=== PATIENT | female | born 1975 | race African-American/Black ===

== ENCOUNTER 2019-03-22 06:10 | Day surgery (SDC) | payer OTHER ==
[2019-03-18 16:28] VITALS: BMI 27.4
[2019-03-22] MEDS ORDERED: SODIUM CHLORIDE 0.9% P/F 10 ML VIAL IJ ONE (07:15)
[2019-03-22] MEDS ORDERED: DEXAMETHASONE SOD PHOSPHATE 4 MG/1 ML VIAL ONE (07:15)
[2019-03-22] MEDS ORDERED: ceFAZolin SODIUM 1 GM VIAL ONE (07:15)
[2019-03-22] MEDS ORDERED: SUCCINYLCHOLINE CHLORIDE 200 MG/10 ML SYRINGE ONE (07:16)
[2019-03-22] MEDS ORDERED: PROPOFOL 20 ML ONE ×2 (07:16→08:13)
[2019-03-22] MEDS ORDERED: ROCURONIUM BROMIDE 50 MG/5 ML SYRINGE ONE (07:16)
[2019-03-22] MEDS ORDERED: fentaNYL CITRATE 250 MCG/5 ML VIAL ONE (07:16)
[2019-03-22] MEDS ORDERED: MIDAZOLAM HCL 2 MG/2 ML SINGLE DOSE VIAL ONE ×2 (07:17)
[2019-03-22] MEDS ORDERED: ACETAMINOPHEN INJECTION 100 ML IVPB ONE (07:33)
[2019-03-22] MEDS ORDERED: SCOPOLAMINE HYDROBROMIDE 1 PATCH PATCH.TD72 ONE (07:42)
[2019-03-22] MEDS ORDERED: oxyCODONE HCL 5 MG TABLET PO PRN ×2 (07:53)
[2019-03-22] MEDS ORDERED: ONDANSETRON 4 MG/2 ML VIAL IVPUSH PRN (07:53)
[2019-03-22] MEDS ORDERED: HYDROmorphone HCl 2 MG/ML VIAL IVPUSH PRN ×2 (07:54→07:55)
[2019-03-22] MEDS ORDERED: LIDOCAINE HCL 1%, 10 MG/ML (20ML VIAL) ONE (07:56)
[2019-03-22] MEDS ORDERED: EPINEPHrine/PF 1 MG/1 ML (1:1,000) AMPULE ONE (07:56)
[2019-03-22] MEDS ORDERED: LACTATED RINGERS SOLUTION 1,000 ML IV SCH (08:00)
[2019-03-22] MEDS ORDERED: ceFAZolin SODIUM 1 GM VIAL IVPB ONE (08:15)
--- NOTE | 2019-03-22 12:47 | OP ---
Operative Note - Note: Operative Date: 03/22/19 Pre-Operative Diagnosis: Symptomatic Macromastia Operation: Bilateral Reduction Mammaplasty Post-Operative Diagnosis: Same as Pre-op Surgeon: Jesus Alberto Reis Merchant Mariner: Louise Ricks Anesthesia: General Specimens Removed: Breast Tissue: 665g Left, 540g Right Estimated Blood Loss (mls): 100 Drains & Tubes with Location: Dmitry drain Each Side- Lateral IMF Operative Report Dictated: Yes
--- NOTE | 2019-03-22 12:59 | OP ---
Operative Note - Note: Operative Date: 03/22/19 Pre-Operative Diagnosis: Abdominal Adiposity Operation: Suction Assisted Lipectomy- Abdomen, Flanks, Lower Back Post-Operative Diagnosis: Same as Pre-op Surgeon: Jesus Alberto Reis Anesthesia: General Specimens Removed: 900cc Aspirate Operative Report Dictated: Yes
--- NOTE | 2019-03-22 13:07 | SURG ---
Surgery Farmworker Animal Note Farmworker Animal: Louise Ricks PA-C (Suzy) Date of Service: 03/22/19 Diagnosis: Symptomatic Macromastia Procedure: Operation: Bilateral Reduction Mammaplasty I was present for the entirety of the operative procedure. For further detail, please refer to operative report. Visit type - Case Type Case Type: Scheduled - Emergency Emergency Visit: No - New patient This patient is new to me today: Yes Date on this admission: 03/22/19 - Critical Care Critical Care patient: No
[2019-03-22] MEDS ORDERED: HYDROmorphone HCl 2 MG/ML VIAL ONE (13:27)
[2019-03-22] MEDS ORDERED: HYDROmorphone HCl 2 MG/ML VIAL IVPUSH ONE ×3 (13:30→14:25)
--- NOTE | 2019-03-22 13:30 | OP ---
DATE OF OPERATION: 03/22/2019 PREOPERATIVE DIAGNOSIS: Symptomatic macromastia. POSTOPERATIVE DIAGNOSIS: Symptomatic macromastia. PROCEDURE PERFORMED: Bilateral reduction mammoplasty. SURGEON: Jesus Alberto Guillaume MD LABEL MAKER: NATHANIEL Donahue ANESTHESIA: General. BRIEF HISTORY: The patient is a 43-year-old female with complaints of neck, back, and shoulder pain and discomfort with saddle deformity on both shoulders and frequent intertrigo. Her symptoms have not responded to nonsurgical therapies, and the patient is now for bilateral reduction mammoplasty. PROCEDURE: The patient was on the operating room table as general anesthesia was administered by the anesthesiologist. The area of the chest was prepped and draped in the usual sterile fashion. The patient was marked in the office 1 day prior to surgery, and these markings were now used as a guide for surgery. The right breast was addressed first, and a 45-mm cookie cutter was used to create a circular design within the nipple areolar complex on the right breast. This incision was made using a No. 15 scalpel blade as were all other skin incisions. An 8 cm inferior pedicle was designed, and this area was deepithelialized as was the area superior to the nipple areolar complex as this procedure was to be done with a bipedicle design. Medial and lateral dissection continued down defining the pedicle to the level of the pectoralis major fascia beneath. Tissue was removed both medially, laterally, and some tissue was removed superiorly with total excision on the right side of 540 g. The pedicle was shortened using a No. 3-0 Biosyn suture in continuous [id number] fashion. The superior portion of the pedicle was trimmed and sutured superiorly after the superior portion of the flap was undermined. Hemostasis was achieved with the electrocautery. The flaps created had an even thickness, and good nipple vascularity was appreciated at this time. Flaps were inset using 2-0 silk suture at [place] points, and a Dmitry drain was inserted through the lateral extent of the inframammary incision. Closure was then begun. Deep tissues were closed with No. 3-0 and 4-0 Biosyn suture in interrupted buried fashion, and a 4-0 V-Lock 90 suture was used in an intradermal fashion for skin. The V-Lock suture was left loose around the [place] drain and will be pulled tighter when the drain is removed in the office. The [place] drain was sutured in with 2-0 silk suture. A similar procedure was performed on the large left breast with total excision 665 g. A Dmitry drain was similarly used, and all wounds were further secured with Steri-Strips. Sterile dressings consisted of Kerlix fluffs and combines and secured with a surgical bra. The patient was then awoken from anesthesia without any difficulty and taken from the operating room to the recovery room in satisfactory condition having tolerated the procedure well. JESUS ALBERTO GUILLAUME M.D. /[id number]
--- NOTE | 2019-03-22 13:53 | OP ---
DATE OF OPERATION: 03/22/2019 PREOPERATIVE DIAGNOSIS: Abdominal adiposity. POSTOPERATIVE DIAGNOSIS: Abdominal adiposity. PROCEDURE PERFORMED: Suction-assisted lipectomy abdomen, flanks, and lower back. SURGEON: Jesus Alberto Guillaume MD ANESTHESIA: General. DESCRIPTION OF PROCEDURE: The patient was on the operating table near the conclusion of a bilateral breast reduction procedure. At the conclusion of the breast reduction procedure, the abdominal area was draped in the usual sterile fashion as it had been prepped at the beginning of the procedure. The area was infiltrated using a roller pump with a tumescent solution consisting of 1 L Ringer's lactate, 1 mL of epinephrine (1:1000), and 50 mL of plain lidocaine. Approximately 400 mL of this fluid was used. Fluid was infiltrated in the areas of the upper and lower abdomen, the flanks, and the lower back through several stab incisions made with a No. 15 scalpel blade. After allowing sufficient time for the epinephrine to take effect, suction lipectomy was performed using the Microaire Power Assisted liposuction device. The total aspirate was approximately 900 mL. Each insertion point was closed with a single 5-0 nylon suture, and dressings were applied and secured with a compression garment. The patient was then awoken from anesthesia without difficulty and taken from the operating room to the recovery room in satisfactory condition having tolerated the procedure well. JESUS ALBERTO GUILLAUME M.D. /[id number]
[2019-03-22 18:20] VITALS: BP 112/60; PULSE 63; TEMP 97.7
--- NOTE | 2019-03-23 16:35 | PATH ---
Surgical Pathology Report Patient Name: PERLA NIXON [facility]. Rec. #: [id number] /Age/Gender: 1975 (Age: 43) / F Account: [id number] Location: [facility] SURGICAL Taken: 03/22/2019 Received: 03/22/2019 Reported: 03/23/2019 Physicians: Jesus Alberto Reis M.D. Specimen(s) Received A: RIGHT BREAST TISSUE B: LEFT BREAST TISSUE Clinical History Macromastia Final Diagnosis A. RIGHT BREAST TISSUE (521 G), EXCISION: BENIGN BREAST TISSUE WITH STROMAL FIBROSIS AND FOCAL MILD CHRONIC INFLAMMATION. PORTION OF SKIN WITH NO SIGNIFICANT PATHOLOGIC CHANGE. B. LEFT BREAST TISSUE (655 G), EXCISION: BENIGN BREAST TISSUE WITH STROMAL FIBROSIS AND MICROCYST. PORTION OF SKIN WITH NO SIGNIFICANT PATHOLOGIC CHANGE. Electronically Signed Sulma Deal M.D. Gross Description A. Received in formalin labeled "right breast tissue 521 g," is an 18.5 x 16.5 x 3.5 cm aggregate of multiple unoriented portions of fibroadipose tissue and brown, unremarkable skin. Sectioning reveals abundant dense, white fibrous tissue. Senior Sales Engineer sections are submitted in 4 cassettes. B. Received in formalin labeled "left breast tissue 655 g," is a 19.0 x 17.0 x 3.8 cm aggregate of multiple unoriented portions of fibroadipose tissue and brown, unremarkable skin. Sectioning reveals abundant dense, white fibrous tissue. Senior Sales Engineer sections are submitted in 3 cassettes. DL/03/22/2019 saudi03/22/2019
== END 2019-03-22 18:21 | disposition home or self-care (01) ==
LOC: JASU-SURG 06:10
PROVIDERS: ATTEND Plastic Surgery
PROC: 0J073ZZ Alteration of Back Subcutaneous Tissue and Fascia, Percutaneous Approach (ICD-10-PCS; 2019-03-22)
PROC: 0HBV0ZZ Excision of Bilateral Breast, Open Approach (ICD-10-PCS; principal; 2019-03-22 08:00)
PROC: 0J083ZZ Alteration of Abdomen Subcutaneous Tissue and Fascia, Percutaneous Approach (ICD-10-PCS; 2019-03-22 08:00)
DX: N62 Hypertrophy of breast (principal); M54.2 Cervicalgia; M25.512 Pain in left shoulder; M25.511 Pain in right shoulder; M54.89 Other dorsalgia
CPT/HCPCS: 84703; 88305-TC; 94760; J0131